=== PATIENT | female | born 1950 | race Caucasian/White ===

== ENCOUNTER → 2017-11-02 13:30 | Outpatient (CLI) | payer OTHER, SELFPAY | PROVIDERS: PCP Internal Medicine; Visit Provider Internal Medicine | DX: M85.88 Other specified disorders of bone density and structure, other site (principal) | CPT/HCPCS: 77080 ==

== ENCOUNTER → 2017-11-03 06:53 | Outpatient (CLI) | payer OTHER, SELFPAY ==
[2017-11-03 08:30] LABS: Add Manual Diff / Slide Review NO; Basophils Percent Auto 0.8 % (0-2); Eosinophils Percent Auto 3.5 % (2-4); Hematocrit 40.7 % (36-46); Hemoglobin 13.8 g/dL (12.0-16.0); Lymphocytes Percent Auto 36.1 % (25-40); Mean Corpuscular HGB Conc 33.9 % (30-36); Mean Corpuscular Hemoglobin 30.1 PG (26-34); Monocytes Percent Auto 6.7 % (3-14); Neutrophils Absolute Auto 3700 /uL (3000-5900); Neutrophils Percent Auto 52.9 % (50-75); Platelet Count 199 X10^3/uL (150-400); Red Blood Cell Count 4.58 X10^6/uL (4.0-5.2); Red Cell Distribution Width 13.2 % (11.6-14.8)
[2017-11-03 08:45] LABS: Cholesterol 215 mg/dL (140-199); HDL Cholesterol 66 mg/dL (40-60); LDL Cholesterol Calculated 134 mg/dL (<100); Triglycerides 73 mg/dL (35-150)
[2017-11-03 09:02] LABS: Vitamin D 25 Hydroxy (D3) 72.7 ng/mL (30.0-100.0)
[2017-11-03 09:15] LABS: Thyroid Stimulating Hormone 3.84 uIU/mL (0.47-4.68)
[2017-11-03 09:37] LABS: Hep C Virus Ab w/Reflex Quant NEGATIVE s/c (NEGATIVE)
== END ==
PROVIDERS: PCP Internal Medicine; Visit Provider Internal Medicine
DX: I10 Essential (primary) hypertension (principal); E03.9 Hypothyroidism, unspecified; Q78.2 Osteopetrosis; Z72.89 Other problems related to lifestyle
CPT/HCPCS: 36415; 80061; 82306; 84443; 85025; 86803

== ENCOUNTER → 2017-11-11 10:08 | Outpatient (CLI) | payer OTHER, SELFPAY ==
[2017-11-13 14:18] LABS: Parathyroid Hormone Int 37 pg/mL (14-64)
== END ==
PROVIDERS: PCP Internal Medicine; Visit Provider Internal Medicine
DX: M81.0 Age-related osteoporosis without current pathological fracture (principal)
CPT/HCPCS: 36415; 83970

== ENCOUNTER → 2018-01-10 10:47 | Outpatient (CLI) | payer OTHER, SELFPAY ==
--- NOTE | 2018-01-10 10:48 | DI.MG.S_ITS ---
BILATERAL DIGITAL SCREENING MAMMOGRAM 3D/2D WITH CAD: 01/10/2018 CLINICAL: Routine screening. Comparison is made to exams dated: 01/07/2017 mammogram, 09/18/2014 mammogram, and 08/14/2013 mammogram - Located [facility]. There are scattered fibroglandular elements in both breasts. Current study was also evaluated with a Computer Aided Detection (CAD) system. There is a mole marker on the right breast. No significant masses, calcifications, or other findings are seen in either breast. There has been no significant interval change. IMPRESSION: NEGATIVE There is no mammographic evidence of malignancy. A 1 year screening mammogram is recommended. This exam was interpreted at Station ID: [id number]. NOTE: For mammograms, a report in lay terms will be sent to the patient. Approximately 15% of breast malignancies will not be visualized mammographically. In the management of a palpable breast mass, a negative mammogram must not discourage biopsy of a clinically suspicious lesion. Electronically Signed By: Jones olson/maryam:01/10/2018 19:44:24 letter sent: Normal Exam ACR BI-RADS Category 1: Negative [id number]
== END ==
PROVIDERS: PCP Internal Medicine; Visit Provider Internal Medicine
DX: Z12.31 Encounter for screening mammogram for malignant neoplasm of breast (principal)
CPT/HCPCS: 77063; 77067

== ENCOUNTER → 2018-11-08 10:04 | Outpatient (CLI) | payer OTHER, SELFPAY | PROVIDERS: PCP Internal Medicine; Visit Provider Internal Medicine | DX: M85.88 Other specified disorders of bone density and structure, other site (principal); Z78.0 Asymptomatic menopausal state; Z82.62 Family history of osteoporosis; E07.9 Disorder of thyroid, unspecified | CPT/HCPCS: 77080 ==

== ENCOUNTER → 2019-03-20 09:07 | Outpatient (CLI) | payer OTHER, SELFPAY ==
--- NOTE | 2019-03-20 | DI.US.S_ITS ---
LIMITED ULTRASOUND OF RIGHT BREAST: 03/20/2019 CLINICAL: Right breast tenderness in the nipple/retroareolar region. Comparison is made to exams dated: 03/20/2019 mammogram, 01/10/2018 mammogram, 01/07/2017 mammogram, 09/18/2014 mammogram, 08/14/2013 mammogram, and 08/12/2012 mammogram - [facility]. Color flow and real-time ultrasound of the right breast retroareolar were performed. Ekllogg scale images of the real-time examination were reviewed. Targeted ultrasound of the right nipple and retroareolar region demonstrates mild diffuse retroareolar ductal ectasia to a maximal diameter of 0.3 cm with mild echogenic intraductal debris but no intraductal mass or focal ductal dilitation. There is no retroareolar mass. There is no increased vascularity on Doppler ultrasound of the retroareolar region. IMPRESSION: BENIGN 1) Mild diffuse retroareolar ductal ectasia echogenic intraductal debris but no intraductal mass or focal ductal dilitation. Recommend clinical follow-up with the patient's referring provider for further evaluation and management of the patient's symptoms. A breast MRI can be considered if there is continued clinical concern. 2) No sonographic evidence of malignancy in the imaged areas of the right breast. Return to annual screening mammography recommended. The patient is advised to monitor her breasts and to return sooner for re-evaluation should anything grow or change. This exam was interpreted at Station ID: [id number]. Electronically Signed By: Jones Clemens M.D. ecl/:03/20/2019 10:44:31 letter sent: Clinical Evaluation Ultrasound BI-RADS: 2 Benign
--- NOTE | 2019-03-20 | DI.MG.S_ITS ---
BILATERAL DIGITAL DIAGNOSTIC MAMMOGRAM 3D/2D: 03/20/2019 CLINICAL: Right breast tenderness. Comparison is made to exams dated: 01/10/2018 mammogram, 01/07/2017 mammogram, and 09/18/2014 mammogram - [facility]. There are scattered fibroglandular elements in both breasts. There is a square skin marker overlying the superior aspect of the right nipple at the site of the patient's reported right breast tenderness. There is no underlying mammographic abnormality. No suspicious masses, calcifications, or other findings are seen in either breast. IMPRESSION: INCOMPLETE: NEEDS ADDITIONAL IMAGING EVALUATION No mammographic abnormality to correlate with the site of the patient's reported right breast tenderness. Targeted diagnostic ultrasound recommended for further evaluation, which will be performed immediately following this exam. This exam was interpreted at Station ID: [id number]. NOTE: For mammograms, a report in lay terms will be sent to the patient. Approximately 15% of breast malignancies will not be visualized mammographically. In the management of a palpable breast mass, a negative mammogram must not discourage biopsy of a clinically suspicious lesion. Electronically Signed By: Jones Clemens M.D. ecl/:03/20/2019 10:11:02 ACR BI-RADS Category 0: Incomplete 3340F
== END ==
PROVIDERS: PCP Internal Medicine; Visit Provider Internal Medicine
DX: R92.8 Other abnormal and inconclusive findings on diagnostic imaging of breast (principal); N64.4 Mastodynia; N60.41 Mammary duct ectasia of right breast
CPT/HCPCS: 76642; 77066; G0279

== ENCOUNTER → 2019-10-20 15:53 | Outpatient (CLI) | payer MEDICARE, SELFPAY ==
--- NOTE | 2019-10-20 15:57 | DI.US.S_ITS ---
PROCEDURE: US THYROID INDICATIONS: HYPERTHYROIDISM TECHNIQUE: Real-time scanning was performed of the thyroid gland, with image documentation. COMPARISON: None. FINDINGS: Right: Thyroid lobe measures 1.4 x 1.7 x 4.7 cm, and is homogeneous in echotexture except for 2 thyroid nodules. Left: Thyroid lobe measures 1.0 x 1.2 x 3.3 cm, and is homogenous in echotexture. Isthmus: 2 mm thick. Nodule number: 1 Location: Superior third right thyroid lobe Size: 0.6 x 0.7 x 0.5 cm. Composition: Solid Echogenicity: Isoechoic Shape: Widened Luis Enrique Margins: Smoothly marginated Echogenic foci: None Total points: 4 ACR TI-RADS category: Category 4 Nodule number: 2 Location: Lower third right thyroid lobe Size: 8 x 9 x 9 mm. Composition: Solid Echogenicity: Hypoechoic Shape: Wider than tall Margins: Smoothly marginated Echogenic foci: None Total points: 4 ACR TI-RADS category: Category 4 IMPRESSION: The thyroid nodules on the right are relatively small in size, and the TI- RADS category for each of these nodules is 4, with recommendation for followup by thyroid ultrasound of the lower third larger thyroid nodule in 1, 2, 3 and 5 years from the current examination. ACR TI-RADS definitions and recommendations: TI-RADS 1 (benign): 0 points. FNA not needed. TI-RADS 2 (not suspicious): 2 points. FNA not needed. TI-RADS 3 (mildly suspicious): 3 points. * FNA if 2.5 cm or larger, follow up if 1.5 cm or larger (at 1, 3, and 5 years). TI-RADS 4 (moderately suspicious): 4-6 points. * FNA if 1.5 cm or larger, follow up if 1 cm or larger (at 1, 2, 3, and 5 years). TI-RADS 5 (highly suspicious): 7 points or more. * FNA if 1 cm or larger, follow up if 0.5 cm or larger (every year for 5 years). Dictated by: Deacon Freed M.D. on 10/21/2019 at 13:06 Approved by: Deacon Freed M.D. on 10/21/2019 at 13:16
--- NOTE | 2019-10-20 15:58 | DI.RAD.S_ITS ---
PROCEDURE: XR SHOULDER RT MIN 2V INDICATIONS: HYPOTHYROID, RIGHT SHOULDER PAIN TECHNIQUE: 3 views of the shoulder were acquired. COMPARISON: None. FINDINGS: Bones: No fractures or dislocations. No suspicious bony lesions. Visualized ribs appear intact. Soft tissues: No suspicious soft tissue calcifications. IMPRESSION: Moderate a.c. joint osteoarthritis, no trauma found. Dictated by: Deacon Freed M.D. on 10/20/2019 at 16:31 Approved by: Deacon Freed M.D. on 10/20/2019 at 16:31
== END ==
PROVIDERS: PCP Internal Medicine; Referring Provider Internal Medicine; Visit Provider Internal Medicine
DX: E03.9 Hypothyroidism, unspecified (principal); E04.2 Nontoxic multinodular goiter; M25.511 Pain in right shoulder; M19.011 Primary osteoarthritis, right shoulder
CPT/HCPCS: 73030; 76536

== ENCOUNTER → 2020-02-16 13:15 | Outpatient (CLI) | payer MEDICARE, SELFPAY ==
[2020-02-19 10:03] LABS: COVID19 Sendout Not Detected (Not Detect)
== END ==
PROVIDERS: PCP Internal Medicine; Visit Provider Physician Assistant
DX: Z11.59 Encounter for screening for other viral diseases (principal)
CPT/HCPCS: 87635

== ENCOUNTER 2020-02-19 11:55 | Day surgery (SDC) | payer MEDICARE, SELFPAY ==
[2020-02-19] VITALS (7 sets, daily range): BP systolic 112–127; BP diastolic 70–82; PULSE 50–63; RESP 15–20; TEMP 36.3–37.3; O2SAT 96–99; BMI 24.5
--- NOTE | 2020-02-19 | PATH_ITS ---
[facility] Accession Number: [id number] . 01 Material submitted: . sigmoid colon - SIGMOID POLYP . 01 Clinical history: . A: SIGMOID POLYP BIOPSY X2 (2MM) . 01 Diagnosis: Sigmoid Colon Polyp, 2 mm, Biopsy: Colonic mucosa with prominent benign lymphoid aggregate. Negative for serrated lesion, dysplasia or malignancy. Additional step sections examined. MRV 02/22/2020 1317 Local . 01 Electronically signed: . Migel Low MD, PhD, Pathologist NPI- [id number] . 01 Gross description: . The specimen is received in formalin, labeled sigmoid polyp biopsy x2 and consists of a 0.6 x 0.3 x 0.2 cm brasher fragment of soft tissue, which is entirely submitted in cassette A1. ([id number]) /[facility] 02/20/2020 1532 Local . 01 Pathologist provided ICD-10: K63.5 . 01 CPT . 481096 Performed at: [address], [place], [place] [id number] MD Luiz Camacho MD Phone: [phone]
--- NOTE | 2020-02-19 12:00 | PM.HP.1 ---
History of Present Illness History of Present Illness Date Patient Seen: 02/19/20 Chief complaint: SDC Narrative: 69 year old female comes in today for consideration of a screening colonoscopy. Last colonoscopy in 2007, normal. There have been no lower GI symptoms suggesting disease such as change in bowel habits, bleeding, abdominal pain or anemia. There is no family history of colon cancer or colon polyps. Overall health issues have been stable, including no major cardiac events for at least 6 weeks. Past medical history: Right shoulder tendonitis Thyroid nodule Hyperlipidemia Hypothyroidism Osteoporosis Past surgical history: laproscopic cholecystectomy Colonsocopy, 2007, normal Past family history: Noncontributory Social History: to [place], retired Teacher. PCP: PRISCILLA Farley Patient History Medical History (Updated 11/11/17 @ 07:01 by PRISCILLA Farley) Cataract (Chronic) Hyperthyroidism (Resolved) Hypothyroidism (Chronic) Insomnia (Chronic) Osteopenia (Chronic) Surgical History (Updated 11/09/17 @ 14:19 by Shara Blankenship) Status post laparoscopic cholecystectomy (~05/2012) Family & Social History Family History (Updated 09/22/14 @ 00:00 by Conversion Provider) Brother ETOHism Father [place] (myocardial infarction) Grandfather Heart disease Grandmother Heart disease Hypertension High cholesterol Mother Age: 99 TIA (transient ischemic attack) Glaucoma H/O carotid endarterectomy Heart disease Hypertension High cholesterol Sister Age: 60 ETOHism Lung cancer Social History: household members spouse lives independently Yes caregiver/support person No Tobacco & Substance use: Smoking Status Never smoker alcohol intake current Meds Home Medications and Allergies Home Medications Medication Instructions Recorded Confirmed Type trazodone 100 mg tablet 100 mg PO HS #30 tab 11/10/17 02/19/20 Rx levothyroxine 50 mcg PO DAILY 02/19/20 02/19/20 History Allergies Allergy/AdvReac Type Severity Reaction Status Date / Time No Known Drug Allergies Allergy Verified 11/10/17 09:00 Review of Systems Review of Systems ROS: Yes All systems reviewed with the patient and are negative except as otherwise documented Exam Narrative Exam Narrative: GENERAL: Alert and oriented, appearing stated age and in no acute distress. HEENT: Head normocephalic/atraumatic. Pupils equal, round, and reactive to light and accomodation. Extraocular muscles intact. Tympanic membranes clear. Nasal mucosa moist, septum midline. Oral mucosa moist, no lesions. Neck soft and supple, no lymphadenopathy. LUNGS: Clear to ausculation bilaterally, no wheezes, rhonchi or rales. CV: Normal S1 and S2 with regular rate and rhythm, no audible murmurs, rubs or gallops. ABDOMEN: Soft, non-tender, non-distended, no organomegaly. Positive bowel sounds. EXTREMITIES: No clubbing, cyanosis, or edema. NEURO: Cranial nerves II through XII grossly intact, no focal deficits. PSYCH: Alert and oriented x 3. SKIN: No concerning lesions. Assessment & Plan Assessment & Plan narrative: 1. Screening for colon cancer Plan for colonoscopy. The nature and character of the procedure as well as anticipated results were discussed. The possibility of not completing the procedure was also discussed. Possible complications including aspiration pneumonia, bleeding, perforation and reaction to medications either for sedation or preparation and missed lesions were discussed. Questions were answered and proceeding to the colonoscopy was elected. Informed consent signed. I sincerely appreciate the referral allowing me to participate in this patient's care. Please contact me with any questions or concerns.
--- NOTE | 2020-02-19 12:14 | P.OP.ENDO_ITS ---
Operative Date/Time/Diagnoses Date of procedure: 02/19/20 Pre-op diagnosis: 1. Screening for colon cancer Procedure & Clinicians Surgeon: Sharon Willett Procedure Notes SCOAP/Timeout: 13:10 Procedure in detail: ENDOSCOPIST: Sharon Willett MD Sedation RN: Fernie Dodson RN Sedation start time: 13:15 Sedation end time: 13:39 PROCEDURE: Colonoscopy INDICATIONS: 1. Screening for colon cancer MEDICATION: Levsin 0.125 mg sublingual, incremental doses of Versed and fentanyl until appropriate level sedation achieved. ASA CLASS: 2 CECAL WITHDRAWAL TIME: 8 minutes COMPLICATIONS: None. EXTENT OF PROCEDURE: Cecum. QUALITY OF PREP: Good with portions of liquid stool. PROCEDURE: Prior to insertion of the colonoscope, a digital rectal examination was accomplished with circumferential palpation of the distal rectal mucosa without significant findings being noted. The high-definition pediatric colonoscope was passed into the rectum in the usual fashion and advanced over to the cecum without difficulty. The ileocecal valve, appendiceal stoma, and medial wall all could be inspected and no abnormalities were seen. ASCENDING COLON: As the colonoscope was withdrawn, care was taken to expose and inspect the haustral folds no abnormalities were seen. HEPATIC FLEXURE: Normal, no polyps, diverticula or other abnormalities. TRANSVERSE COLON: Normal, no polyps, diverticula or other abnormalities. DESCENDING COLON: Normal, no polyps, diverticula or other abnormalities. SIGMOID COLON: 2 small polyps, 2 mm, removed with cold biopsy forceps. Otherwise, no diverticula or other abnormalities. RECTUM: Normal. J maneuver was produced. There was no significant perianal disease. The J maneuver was broken. The remainder of the rectum was inspected a nd there was external hemorrhoid disease. The scope was withdrawn. IMPRESSION: 1. Sigmoid polyp x2, 2 mm, removed with cold biopsy forceps 2. External hemorrhoid disease, non thrombosed PLAN: 1. Follow-up in clinic status post pathology results. The possibility of a missed lesion including a malignancy has been discussed with the patient previously. Potential alarm symptoms have been discussed and should be reported immediately.
[2020-02-19] MEDS: LACTATED RINGERS 1,000 ML 200 ML IV (12:30)
[2020-02-19] MEDS: MIDAZOLAM 5 MG/5 ML VIAL IV (13:22)
[2020-02-19] MEDS: fentaNYL 250 MCG/5 ML INJ IV (13:22)
== END 2020-02-19 14:30 | disposition home or self-care (01) ==
PROVIDERS: PCP Internal Medicine; Referring Provider Student in an Organized Health Care Education/Training Program; Visit Provider Student in an Organized Health Care Education/Training Program
PROC: 0DJD8ZZ Inspection of Lower Intestinal Tract, Via Natural or Artificial Opening Endoscopic (ICD-10-PCS; CPT 45378; principal; 2020-02-19 13:00)
DX: Z12.11 Encounter for screening for malignant neoplasm of colon (principal); K64.4 Residual hemorrhoidal skin tags
CPT/HCPCS: 45380; J2250; J3010

== ENCOUNTER → 2020-06-28 14:24 | Outpatient (CLI) | payer MEDICARE, SELFPAY ==
[2020-06-28] MEDS: COVID-19 VACC #1, MRNA(MOD) 100 MCG/0.5 ML VIAL IM (14:32)
== END ==
PROVIDERS: PCP Internal Medicine; Visit Provider Internal Medicine
DX: Z23 Encounter for immunization (principal)
CPT/HCPCS: 0011A; 91301

== ENCOUNTER → 2020-07-26 15:18 | Outpatient (CLI) | payer MEDICARE, SELFPAY ==
[2020-07-26] MEDS: COVID-19 VACC #2, MRNA(MOD) 100 MCG/0.5 ML VIAL IM (15:29)
== END ==
PROVIDERS: PCP Internal Medicine; Visit Provider Internal Medicine
DX: Z23 Encounter for immunization (principal)
CPT/HCPCS: 0012A; 91301

== ENCOUNTER → 2020-09-05 14:00 | Outpatient (CLI) | payer MEDICARE, SELFPAY ==
--- NOTE | 2020-09-05 14:03 | DI.US.S_ITS ---
PROCEDURE: US THYROID INDICATIONS: Nontoxic single thyroid nodule TECHNIQUE: Real-time scanning was performed of the thyroid gland, with image documentation. COMPARISON: [facility], US, US THYROID, 10/20/2019, 16:08. FINDINGS: Right: The right thyroid lobe measures 1.6 x 1.0 x 4.6 cm and contains a superior 3rd 5 x 6 x 7 mm nodule that is wider than tall, solid, isoechoic, smoothly marginated and contains several punctate calcifications. The lower 3rd of the gland contains a 7 x 7 x 9 mm nodule, which is wider than tall, solid, hypoechoic, smoothly marginated and contains no internal calcifications. Left: The left thyroid lobe measures 1.1 x 0.9 x 2.9 cm and also appears normal. Isthmus: The isthmus is normal in thickness at 2 mm. IMPRESSION: The upper right thyroid nodule has a TIrads categorization score of 6, moderately suspicious, but given its small size follow-up ultrasound rather than biopsy is recommended at 1, 2, 3 and 5 years from initial identification. The lower right thyroid nodule as a Tirads categorization score of 4, thigh rads 4, and given its small size biopsy is not recommended. Rather, follow-up by ultrasound at 1, 2, 3 and 5 years from initial identification is recommended. Dictated by: Deacon Freed M.D. on 09/05/2020 at 16:39 Approved by: Deacon Freed M.D. on 09/05/2020 at 16:46
== END ==
PROVIDERS: PCP Internal Medicine; Referring Provider Internal Medicine; Visit Provider Internal Medicine
DX: E04.2 Nontoxic multinodular goiter (principal)
CPT/HCPCS: 76536

== ENCOUNTER → 2020-12-17 10:49 | Outpatient (CLI) | payer MEDICARE, SELFPAY ==
--- NOTE | 2020-12-17 | DI.RAD.S_ITS ---
PROCEDURE: XR DEXA AXIAL SKELETON INDICATIONS: POST MENOPAUSAL COMPARISON: [facility], CR, XR DEXA AXIAL SKELETON, 11/08/2018, 10:24. FINDINGS: This blank DEXA report has been sent in error by the PACS system. The correct and complete report will be forthcoming in 1-2 days. Thank you for your patience and understanding. Dictated by: Andressa Rivera MD, PhD on 12/17/2020 at 17:32 Approved by: Andressa Rivera MD, PhD on 12/17/2020 at 17:32
--- NOTE | 2020-12-17 | DI.MG.S_ITS ---
BILATERAL DIGITAL SCREENING MAMMOGRAM 3D/2D WITH CAD: 12/17/2020 CLINICAL: Routine screening. Comparison is made to exams dated: 03/20/2019 mammogram, 01/10/2018 mammogram, 01/07/2017 mammogram, and 09/18/2014 mammogram - [facility]. There are scattered fibroglandular elements in both breasts. Current study was also evaluated with a Computer Aided Detection (CAD) system. No significant masses, calcifications, or other findings are seen in either breast. There has been no significant interval change. IMPRESSION: NEGATIVE There is no mammographic evidence of malignancy. A 1 year screening mammogram is recommended. This exam was interpreted at Station ID: [id number]. NOTE: For mammograms, a report in lay terms will be sent to the patient. Approximately 15% of breast malignancies will not be visualized mammographically. In the management of a palpable breast mass, a negative mammogram must not discourage biopsy of a clinically suspicious lesion. Electronically Signed By: Sacha allison/maryam:12/17/2020 13:28:39 letter sent: Normal Exam ACR BI-RADS Category 1: Negative 3341F
== END ==
PROVIDERS: PCP Internal Medicine; Referring Provider Internal Medicine; Visit Provider Internal Medicine
DX: Z12.31 Encounter for screening mammogram for malignant neoplasm of breast (principal); M85.88 Other specified disorders of bone density and structure, other site; Z78.0 Asymptomatic menopausal state; E07.9 Disorder of thyroid, unspecified; Z82.62 Family history of osteoporosis
CPT/HCPCS: 77063; 77067; 77080

== ENCOUNTER → 2021-06-03 10:56 | Outpatient (CLI) | payer MEDICARE, SELFPAY ==
[2021-06-03 12:46] LABS: COVID19 -Nasal RAPID Negative (Negative)
== END ==
PROVIDERS: PCP Internal Medicine; Visit Provider Physician Assistant
DX: Z20.822 Contact with and (suspected) exposure to COVID-19 (principal)
CPT/HCPCS: 87635

== ENCOUNTER → 2021-12-19 11:04 | Outpatient (CLI) | payer MEDICARE, SELFPAY ==
--- NOTE | 2021-12-19 | DI.MG.S_ITS ---
BILATERAL DIGITAL SCREENING MAMMOGRAM 3D/2D WITH CAD: 12/19/2021 CLINICAL: Routine screening. Comparison is made to exams dated: 12/17/2020 mammogram, 03/20/2019 mammogram, and 01/10/2018 mammogram - [facility]. There are scattered fibroglandular elements in both breasts. Current study was also evaluated with a Computer Aided Detection (CAD) system. There is an equal density focal asymmetry with an indistinct and microlobulated margin in the left breast at 1 o'clock middle depth. No other significant masses, calcifications, or other findings are seen in either breast. IMPRESSION: INCOMPLETE: NEEDS ADDITIONAL IMAGING EVALUATION The equal density focal asymmetry in the left breast is indeterminate. Additional views with possible ultrasound are recommended. Based on the Tyrer Cuzick model (a risk assessment model) the patient's lifetime risk is 3.0% and her 10 year risk is 2.5%. According to the ACR, ACS, and NCCN guidelines, an annual breast MRI exam along with mammogram is recommended if the patient's lifetime risk is 20% or greater. This exam was interpreted at Station ID: [id number]. NOTE: For mammograms, a report in lay terms will be sent to the patient. Approximately 15% of breast malignancies will not be visualized mammographically. In the management of a palpable breast mass, a negative mammogram must not discourage biopsy of a clinically suspicious lesion. Electronically Signed By: Dmitriy Gill M.D., jr/maryam:12/19/2021 11:41:32 letter sent: Additional Imaging Needed ACR BI-RADS Category 0: Incomplete 3340F
== END ==
PROVIDERS: PCP Internal Medicine; Referring Provider Internal Medicine; Visit Provider Internal Medicine
DX: Z12.31 Encounter for screening mammogram for malignant neoplasm of breast (principal); M81.0 Age-related osteoporosis without current pathological fracture; N64.89 Other specified disorders of breast; M85.89 Other specified disorders of bone density and structure, multiple sites
CPT/HCPCS: 77063; 77067; 77080

== ENCOUNTER → 2022-01-05 11:56 | Outpatient (CLI) | payer MEDICARE, SELFPAY ==
--- NOTE | 2022-01-05 11:58 | DI.MG.S_ITS ---
UNILATERAL LEFT DIGITAL DIAGNOSTIC MAMMOGRAM 3D/2D WITH ADDITIONAL VIEWS: 01/05/2022 CLINICAL: Additional evaluation requested from prior study. Comparison is made to exams dated: 12/19/2021 mammogram, 12/17/2020 mammogram, 03/20/2019 ultrasound, 03/20/2019 mammogram, and 01/10/2018 mammogram - [facility]. There are scattered fibroglandular elements in left breast. There is an equal density focal asymmetry with an indistinct and microlobulated margin in the left breast at 1 o'clock middle depth. This is not significantly changed. No other significant masses or calcifications are seen in the breast. IMPRESSION: INCOMPLETE: NEEDS ADDITIONAL IMAGING EVALUATION The equal density focal asymmetry in the left breast most likely is a cyst or a lymph node and is indeterminate. An ultrasound is recommended. Based on the Tyrer Cuzick model (a risk assessment model) the patient's lifetime risk is 3.0% and her 10 year risk is 2.5%. According to the ACR, ACS, and NCCN guidelines, an annual breast MRI exam along with mammogram is recommended if the patient's lifetime risk is 20% or greater. This exam was interpreted at Station ID: [id number]. NOTE: For mammograms, a report in lay terms will be sent to the patient. Approximately 15% of breast malignancies will not be visualized mammographically. In the management of a palpable breast mass, a negative mammogram must not discourage biopsy of a clinically suspicious lesion. Electronically Signed By: Dmitriy Gill M.D., jr/maryam:01/05/2022 15:56:15 ACR BI-RADS Category 0: Incomplete 3340F
--- NOTE | 2022-01-05 11:59 | DI.US.S_ITS ---
LIMITED ULTRASOUND OF LEFT BREAST: 01/05/2022 CLINICAL: Additional evaluation requested from today's mammo. No prior exams were available for comparison. Color flow and real-time ultrasound of the left breast 1 o'clock region were performed. Kellogg scale images of the real-time examination were reviewed. There is a benign normal lymph node in the left breast at 1 o'clock middle depth. This correlates with mammography findings. IMPRESSION: BENIGN There is no sonographic evidence of malignancy. The normal lymph node in the left breast is benign. A 1 year screening mammogram is recommended. This exam was interpreted at Station ID: [id number]. Electronically Signed By: Dmitriy Gill M.D., jr/maryam:01/05/2022 15:57:02 letter sent: Normal Exam Ultrasound BI-RADS: 2 Benign
== END ==
PROVIDERS: PCP Internal Medicine; Referring Provider Internal Medicine; Visit Provider Internal Medicine
DX: R92.8 Other abnormal and inconclusive findings on diagnostic imaging of breast (principal); N63.20 Unspecified lump in the left breast, unspecified quadrant
CPT/HCPCS: 76642; 77065; G0279

== ENCOUNTER → 2022-12-21 11:10 | Outpatient (CLI) | payer MEDICARE, SELFPAY ==
--- NOTE | 2022-12-21 | DI.RAD.S_ITS ---
Bone Density Report Name: MARIE WICK Age: 72 Sex: Female Ethnicity: White Date of : 1950 Indication: osteopenia; monitoring treatment; Referring Provider: ANCA DAVIS Study: Bone densitometry was performed. Exam Date: December 21, 2022 Accession number: [id number] Bone Density: Region BMD T-score Z-score Classification AP Spine(L1, L2, L3) 0.880 -1.3 1.1 Osteopenia Femoral Neck (Left) 0.697 -1.4 0.7 Osteopenia Total Hip (Left) 0.792 -1.2 0.5 Osteopenia Femoral Neck (Right) 0.616 -2.1 -0.1 Osteopenia Total Hip (Right) 0.785 -1.3 0.5 Osteopenia Total Hip Mean 0.788 -1.3 0.5 Osteopenia World Health Organization criteria for BMD impression classify patients as: Normal (T-score at or above -1.0), Osteopenia (T-score between -1.0 and -2.5), or Osteoporosis (T-score at or below -2.5). 10-year Fracture Risk: FRAX not reported because: Treated for osteoporosis Previous Exams: -- Region Exam Age BMD T-score BMD Change BMD Change Date g/cm2 vs Baseline vs Previous -- AP Spine (L1-L3) 12/21/2022 72 0.880 -1.3 0.024 (2.8%)# 0.024 (2.8%)# 12/19/2021 71 0.856 -1.5 Total Hip(Left) 12/21/2022 72 0.792 -1.2 0.017 (2.2%)# 0.017 (2.2%)# 12/19/2021 71 0.775 -1.4 Total Hip(Right) 12/21/2022 72 0.785 -1.3 0.004 (0.5%)# 0.004 (0.5%)# 12/19/2021 71 0.781 -1.3 -- *Denotes significance at 95% confidence level, LSC for AP Spine = 0.022 g/cm2, LSC for Total Hip = 0.027 g/cm2 # Denotes dissimilar scan types or analysis methods Impression: The patient has low bone mass, based on the Right Femoral Neck T-score. No significant bone loss was observed. Discussion: PATIENT UNDER TREATMENT WITH NO SIGNIFICANT BMD LOSS SINCE LAST EXAM. In an untreated patient, BMD typically declines with age. A lack of decline or gain is usually a sign that treatment is efficacious and fracture risk is reduced. It is important to ask patients whether they are taking their medications and to encourage continued and appropriate compliance with their osteoporosis therapies to reduce fracture risk. It is also important to review their risk factors and encourage appropriate calcium and vitamin D intakes, exercise, fall prevention and other lifestyle measures. Follow-Up: Consider a repeat BMD and Vertebral Fracture Assessment (VFA) exam in 2 years or sooner if medically necessary, to reassess this patient's status. Reported by: FABI MCCOY M.D. on 12/21/2022 11:41:00 AM.
--- NOTE | 2022-12-21 | DI.MG.S_ITS ---
BILATERAL DIGITAL SCREENING MAMMOGRAM 3D/2D WITH CAD: 12/21/2022 CLINICAL: Routine screening. Comparison is made to exams dated: 01/05/2022 mammogram, 12/19/2021 mammogram, 12/17/2020 mammogram, and 03/20/2019 mammogram - [facility]. There are scattered areas of fibroglandular density in both breasts (category b / 25%-50% glandular tissue). Current study was also evaluated with a Computer Aided Detection (CAD) system. No significant masses, calcifications, or other findings are seen in either breast. There has been no significant interval change. IMPRESSION: NEGATIVE There is no mammographic evidence of malignancy. A 1 year screening mammogram is recommended. Based on the Tyrer Cuzick model (a risk assessment model) the patient's lifetime risk is 2.8% and her 10 year risk is 2.5%. According to the ACR, ACS, and NCCN guidelines, an annual breast MRI exam along with mammogram is recommended if the patient's lifetime risk is 20% or greater. This exam was interpreted at Station ID: [id number]. NOTE: For mammograms, a report in lay terms will be sent to the patient. Approximately 15% of breast malignancies will not be visualized mammographically. In the management of a palpable breast mass, a negative mammogram must not discourage biopsy of a clinically suspicious lesion. Electronically Signed By: Luis newman/maryam:12/21/2022 13:22:51 letter sent: Normal Exam ACR BI-RADS Category 1: Negative 3341F
== END ==
PROVIDERS: PCP Internal Medicine; Referring Provider Internal Medicine; Visit Provider Internal Medicine
DX: M81.0 Age-related osteoporosis without current pathological fracture (principal); Z12.31 Encounter for screening mammogram for malignant neoplasm of breast; Z78.0 Asymptomatic menopausal state; Z79.83 Long term (current) use of bisphosphonates
CPT/HCPCS: 77063; 77067; 77080

== ENCOUNTER → 2022-12-30 07:11 | Outpatient (CLI) | payer MEDICARE, SELFPAY ==
--- NOTE | 2022-12-30 | DI.US.S_ITS ---
PROCEDURE: US THYROID INDICATIONS: THYROID NODULE TECHNIQUE: Real-time scanning was performed of the thyroid gland, with image documentation. COMPARISON: [facility], [place], US THYROID, 10/20/2019, 16:08. [facility], [place], US THYROID, 09/05/2020, 13:15. FINDINGS: Right: Thyroid lobe measures 4.8 x 1.3 x 1.3 cm, and is homogeneous in echotexture. Left: Thyroid lobe measures 3.6 x 1.1 x 1.1 cm, and is homogenous in echotexture. Isthmus: 1.4 mm thick. Nodule number: 1 Location: Right superior Size: 0.6 x 0.5 x 0.5 cm compared to 0.6 x 0.7 x 0.5 cm. Composition: Solid Echogenicity: Hypoechoic Shape: wider than tall. Margins: Smooth Echogenic foci: Periphery Total points: 6 ACR TI-RADS category: 4 Nodule number: 2 Location: Right inferior Size: 1.0 x 0.7 x 0.9 cm compared to 0.7 x 0.7 x 0.9 cm. Composition: Solid Echogenicity: Hypoechoic Shape: wider than tall. Margins: Smooth Echogenic foci: None Total points: 4 ACR TI-RADS category: 4 IMPRESSION: Lesion 1 is considered category 4. Secondary to size, no additional follow-up is recommended. Lesion 2 is considered category 4. There has been a minimal interval increase in size since 2020. Recommend continued interval follow-up. ACR TI-RADS definitions and recommendations: TI-RADS 1 (benign): 0 points. FNA not needed. TI-RADS 2 (not suspicious): 2 points. FNA not needed. TI-RADS 3 (mildly suspicious): 3 points. * FNA if 2.5 cm or larger, follow up if 1.5 cm or larger (at 1, 3, and 5 years). TI-RADS 4 (moderately suspicious): 4-6 points. * FNA if 1.5 cm or larger, follow up if 1 cm or larger (at 1, 2, 3, and 5 years). TI-RADS 5 (highly suspicious): 7 points or more. * FNA if 1 cm or larger, follow up if 0.5 cm or larger (every year for 5 years). Dictated by: Sherry Grijalva M.D. on 12/30/2022 at 13:30 Approved by: Sherry Grijalva M.D. on 12/30/2022 at 13:32
== END ==
PROVIDERS: PCP Internal Medicine; Referring Provider Internal Medicine; Visit Provider Internal Medicine
DX: E04.2 Nontoxic multinodular goiter (principal)
CPT/HCPCS: 76536

== ENCOUNTER → 2024-01-10 13:52 | Outpatient (CLI) | payer MEDICARE, SELFPAY ==
--- NOTE | 2024-01-10 13:53 | DI.MG.S_ITS ---
BILATERAL DIGITAL SCREENING MAMMOGRAM 3D/2D WITH CAD: 01/10/2024 CLINICAL: Routine screening. Comparison is made to exams dated: 12/21/2022 mammogram, 12/19/2021 mammogram, and 12/17/2020 mammogram - [facility]. There are scattered areas of fibroglandular density in both breasts (category b / 25%-50% glandular tissue). Current study was also evaluated with a Computer Aided Detection (CAD) system. No significant masses, calcifications, or other findings are seen in either breast. There has been no significant interval change. IMPRESSION: NEGATIVE There is no mammographic evidence of malignancy. A 1 year screening mammogram is recommended. Based on the Tyrer Cuzick model (a risk assessment model) the patient's lifetime risk is 2.6% and her 10 year risk is 2.6%. According to the ACR, ACS, and NCCN guidelines, an annual breast MRI exam along with mammogram is recommended if the patient's lifetime risk is 20% or greater. This exam was interpreted at Station ID: [id number]. NOTE: For mammograms, a report in lay terms will be sent to the patient. Approximately 15% of breast malignancies will not be visualized mammographically. In the management of a palpable breast mass, a negative mammogram must not discourage biopsy of a clinically suspicious lesion. Electronically Signed By: Mango arroyo/maryam:01/10/2024 16:06:32 letter sent: Normal Exam ACR BI-RADS Category 1: Negative 3341F
== END ==
PROVIDERS: PCP Internal Medicine; Referring Provider Internal Medicine; Visit Provider Internal Medicine
DX: Z12.31 Encounter for screening mammogram for malignant neoplasm of breast (principal); R92.323 Mammographic fibroglandular density, bilateral breasts
CPT/HCPCS: 77063; 77067

== ENCOUNTER → 2024-11-13 11:09 | Outpatient (CLI) | payer OTHER, SELFPAY ==
--- NOTE | 2024-11-13 11:11 | DI.US.S_ITS ---
PROCEDURE: US THYROID INDICATIONS: screenign TECHNIQUE: Real-time scanning was performed of the thyroid gland, with image documentation. COMPARISON: [facility], [place], US THYROID, 12/30/2022, 7:18. FINDINGS: Thyroid: Right lobe measures 3.6 x 1.2 x 1.1 cm. Left lobe measures 3.2 x 0.9 x 0.9 cm. Isthmus is 0.3 cm thick. Echotexture is heterogeneous. Previously seen right superior thyroid lobe nodule no longer meets consensus criteria for imaging follow-up. Nodule number: 1 (previously labeled as nodule 2) Location: Right inferior thyroid lobe Size: 1.1 x 1.0 x 0.9 cm. Composition: Solid Echogenicity: Isoechoic Shape: wider than tall. Margins: Smooth Echogenic foci: Punctate Total points: 6 ACR TI-RADS category: TIRADS 4 (moderately suspicious) IMPRESSION: Single TIRADS 4 (moderately suspicious) inferior right thyroid lobe nodule measuring up to 1.1 cm in size. Per consensus criteria, recommend follow-up thyroid ultrasound in 1 year. ACR TI-RADS definitions and recommendations: TI-RADS 1 (benign): 0 points. FNA not needed. TI-RADS 2 (not suspicious): 2 points. FNA not needed. TI-RADS 3: 3 points. * FNA if 2.5 cm or larger, follow up if 1.5 cm or larger (at 1, 3, and 5 years). TI-RADS 4: 4-6 points. * FNA if 1.5 cm or larger, follow up if 1 cm or larger (at 1, 2, 3, and 5 years). TI-RADS 5: 7 points or more. * FNA if 1 cm or larger, follow up if 0.5 cm or larger (every year for 5 years). Dictated by: Dustin Kearney M.D. on 11/13/2024 at 17:48 Approved by: Dustin Kearney M.D. on 11/13/2024 at 17:52
--- NOTE | 2024-11-13 11:12 | DI.RAD.S_ITS ---
PROCEDURE: XR DEXA AXIAL SKELETON INDICATIONS: screening COMPARISON: [facility], , XR DEXA AXIAL SKELETON, 12/21/2022, 11:23. FINDINGS: Lumbar Spine: Bone mineral density 0.936 (previously 0.880) g/cm2, T score -0.7 (previously -1.3). Left Femoral Neck: Bone mineral density 0.673 (previously 0.697) g/cm2, T score -1.6 (previously -1.4). Left Hip: Bone mineral density 0.777 (previously 0.792) g/cm2, T score -1.4 (previously -1.2). Fracture Risk Calculation (when applicable): 10-year fracture risk of a major osteoporotic fracture 29 percent and of a hip fracture 15 percent. (T score greater or equal to -1.0 to: NORMAL) (T score from -1.1 to -2.4: OSTEOPENIA) (T score less than or equal to -2.5: OSTEOPOROSIS) IMPRESSION: Osteopenia--- recommend repeat DEXA in 2-3 years for reassessment. Follow-up guidelines as follows: Osteoporosis: Consider a repeat DEXA and Vertebral Fracture Assessment (VFA) exam in 2 years or sooner if medically necessary, to reassess this patient's status. Osteopenia: Consider a repeat DEXA in 2-3 years to reassess this patient's status, or if there is a new clinical indication. Normal: Consider a repeat DEXA in 5 years or sooner, or if there is a new clinical indication. All treatment decisions require clinical judgment and consideration of individual patient factors, including patient preferences, comorbidities, previous drug use, risk factors not captured in the FRAX model (e.g., frailty, falls, vitamin D deficiency, increased bone turnover, interval significant decline in bone density ) and possible under- or over-estimation of fracture risk by FRAX. In addition, the NOF Guide recommends that FDA-approved medical therapies be considered in postmenopausal women and men age >= 50 years with a: * Hip or vertebral (clinical or morphometric) fracture * T-score of <=-2.5 at the spine or hip * Ten-year fracture probability by FRAX of >= 3% for hip fracture or >=20% for major osteoporotic fracture. Dictated by: Fabian Jimenez M.D. on 11/13/2024 at 20:14 Approved by: Fabian Jimenez M.D. on 11/13/2024 at 20:18
== END ==
LOC: US 11:11
PROVIDERS: PCP Registered Nurse; Referring Provider Registered Nurse; Visit Provider Registered Nurse
DX: Z13.820 Encounter for screening for osteoporosis (principal); M85.852 Other specified disorders of bone density and structure, left thigh; Z78.0 Asymptomatic menopausal state; E04.1 Nontoxic single thyroid nodule
CPT/HCPCS: 76536; 77080